=== PATIENT | female | born 1945 | race Caucasian/White ===

== ENCOUNTER → 2016-07-08 | Outpatient (CLI) | payer MEDICARE ==
--- NOTE | 2016-07-08 14:02 | XR ---
EXAMINATION TYPE: XR chest 2V DATE OF EXAM: 07/08/2016 1:31 PM COMPARISON: Chest x-ray September 18, 2009. HISTORY: R07.81 Pleurodynia per order. Left-sided chest and rib pain since carrying injury per patie nt. TECHNIQUE: Frontal and lateral views of the chest are obtained. FINDINGS: There is chronic senescent change without suspicious focal air space opacity, pleural effus ion, or pneumothorax seen bilaterally. The cardiac silhouette size is within normal limits with athe rosclerotic change in aortic knob. The osseous structures are somewhat demineralized. Scoliotic cur vature is redemonstrated. Cholecystectomy clips are redemonstrated. No acute displaced left-sided rib fractures are evident. IMPRESSION: Chronic changes without acute pulmonary process. No significant change from prior.
== END | disposition home or self-care (01) ==
LOC: RADXRMAIN 13:17
PROVIDERS: ATTEND Family Medicine
DX: R07.81 Pleurodynia (principal)
CPT/HCPCS: 71020

== ENCOUNTER → 2017-03-03 | Outpatient (CLI) | payer MEDICARE ==
--- NOTE | 2017-03-03 13:08 | BD ---
EXAMINATION TYPE: MG DEXA axial skeleton. DATE OF EXAM: 03/03/2017 COMPARISON: NONE CLINICAL HISTORY: osteopenia Height: 5'3 Weight: 152 FRAX RISK QUESTIONS: Alcohol (3 or more units per day): no Family History (Parent hip fracture): no Glucocorticoids (More than 3mos): yes (Ex: prednisone, prednisolone, methylprednisolone, dexamethasone, and hydrocortisone). History of Fracture in Adulthood: no Secondary Osteoporosis: 1. Type 1 Diabetes: no 2. Hyperthyroidism: no 3. Menopause before 45: no 4. Malnutrition: no 5. Chronic liver disease: no Rheumatoid Arthritis: no Current Tobacco Use: no RISK FACTORS HISTORY OF: Diet low in dairy products/other sources of calcium: Postmenopausal woman: MEDICATIONS: Prednisone or other steroids: How Lon-5 years off and on Additional Medications: Additional History: EXAM MEASUREMENTS: Bone mineral densitometry was performed using the Capigami System. Bone mineral density as measured about the Lumbar spine is: ----- L1-L4(G/cm2): 1.040 T Score Values are as follows: ----- L2: -1.9 ----- L3: -1.7 ----- L4: 0.6 ----- L1-L4: -1.2 Bone mineral density about the R hip (g/cm2): 0.789 Bone mineral density about the L hip (g/cm2): 0.796 T Score values are as follows: -----R Neck: -1.8 -----L Neck: -1.7 -----R Total: -1.0 -----L Total: -1.1 IMPRESSION: Osteopenia (T Score between -2.5 and -1 ) as noted by T score values: L2-L3 and Arie Hips There is slightly increased risk of fracture and the patient may be considered for treatment. Re-Screen 2-5 years. NOTE: T-SCORE=SD OF THE YOUNG ADULT MEAN.
--- NOTE | 2017-03-05 07:59 | MM ---
Reason for exam: screening (asymptomatic). Last mammogram was performed 2 years and 2 months ago. History: Patient is postmenopausal and is nulliparous. Family history of breast cancer in maternal cousin and breast cancer in maternal aunt. Benign lumpectomy of the right breast, 1960. Physical Findings: A clinical breast exam by your physician is recommended on an annual basis and results should be correlated with mammographic findings. MG 3D Screening Mammo W/Cad Bilateral CC and MLO view(s) were taken. Prior study comparison: December 18, 2014, mammogram, performed at [facility]. November 28, 2013, mammogram, performed at [facility]. There is chronic nodularity bilaterally. No significant changes when compared with prior studies. ASSESSMENT: Benign, BI-RAD 2 RECOMMENDATION: Routine screening mammogram of both breasts in 1 year.
== END | disposition home or self-care (01) ==
LOC: RADMAMWWP 11:54
PROVIDERS: ATTEND Obstetrics & Gynecology
DX: Z12.31 Encounter for screening mammogram for malignant neoplasm of breast (principal); M85.88 Other specified disorders of bone density and structure, other site
CPT/HCPCS: 77080; 77063; G0202

== ENCOUNTER 2017-12-01 09:17 | Day surgery (SDC) | payer MEDICARE ==
[2017-11-26 13:01] VITALS: BMI 25.8
[~2017-12-01 09:17] MED LIST: LACTATED RINGERS 1,000 ML IV SCH
[2017-12-01] MEDS ORDERED: LIDOCAINE 1% 20 ML VIAL (10MG/ML) FOR IV START INTRADERMA ONE (09:49)
[2017-12-01 09:51] VITALS: RESP 16; TEMP 98
[2017-12-01] MEDS ORDERED: LIDOCAINE 1% INJ 10MG/ML (20 ML MDV) ONE (10:06)
[2017-12-01] MEDS ORDERED: PROPOFOL 10 MG/ML 20 ML VIAL IV ONE (10:06)
--- NOTE | 2017-12-01 10:08 | P.GSHP ---
History of Present Illness H&P Date: 12/01/17 CHIEF COMPLAINT: GERD HISTORY OF PRESENT ILLNESS: The patient is a 72-year-old female who presents reports gastroesophageal reflux disease. Upper endoscopy was offered for further evaluation and management. PAST MEDICAL HISTORY: Please see list. PAST SURGICAL HISTORY: Please see list. MEDICATIONS: Please see list. ALLERGIES: Please see list. SOCIAL HISTORY: No illicit drug use FAMILY HISTORY: No reports of Crohn disease or ulcerative colitis. REVIEW OF ORGAN SYSTEMS: CONSTITUTIONAL: No reports of fevers or chills. GI: Denies any blood in stools or constipation. PHYSICAL EXAM: VITAL SIGNS: Stable GENERAL: Well-developed and pleasant in no acute distress. HEENT: No scleral icterus. Extraocular movements grossly intact. Moist buccal mucosa. NECK: Supple without lymphadenopathy. CHEST: Unlabored respirations. Equal bilateral excursions. CARDIOVASCULAR: Regular rate and rhythm. Distal 2+ pulses. ABDOMEN: Soft, nondistended. MUSCULOSKELETAL: No clubbing, cyanosis, or edema. ASSESSMENT: 1. Gastroesophageal reflux disease PLAN: 1. Recommend proceeding with an upper endoscopy Past Medical History Past Medical History: Asthma, Fibromyalgia Additional Past Medical History / Comment(s): RECENT ABD. PAIN History of Any Multi-Drug Resistant Organisms: None Reported Past Surgical History: Cholecystectomy Additional Past Surgical History / Comment(s): COLONOSCOPY. BILAT CATARACTS REPAIRED. REPAIR DETACHED RT RETINA Past Anesthesia/Blood Transfusion Reactions: Motion Sickness Smoking Status: Never smoker - Past Family History Mother Family Medical History: No Reported History Medications and Allergies Home Medications Medication Instructions Recorded Confirmed Type Albuterol Inhaler [Ventolin Hfa 1 - 2 puff INHALATION Q4-6H PRN 11/26/17 History Inhaler] Albuterol Nebulized [Ventolin 2.5 mg INHALATION DAILY PRN 11/26/17 11/26/17 History Nebulized] Zolpidem [Ambien] 10 mg PO HS 11/26/17 11/26/17 History Allergies Allergy/AdvReac Type Severity Reaction Status Date / Time Milk Containing Products Allergy Wheezing Verified 11/26/17 12:54 [Dairy] Surgical - Exam Vital Signs Temp Pulse Resp BP Pulse Ox 98.0 F 83 16 180/88 97 12/01/17 09:49 12/01/17 09:49 12/01/17 09:49 12/01/17 09:49 12/01/17 09:49
--- NOTE | 2017-12-01 10:21 | P.PCN ---
Date of Procedure: 12/01/17 Description of Procedure: PREOPERATIVE DIAGNOSIS: Gastroesophageal reflux disease. POSTOPERATIVE DIAGNOSIS: Gastritis with recent bleed, superficial Superficial gastric ulcer, cardia Gastroesophageal reflux disease. Diaphragmatic hiatal hernia without obstruction. OPERATION: Esophagogastroduodenoscopy with biopsies along antrum. SURGEON: Ramila Huddleston MD ANESTHESIA: MAC. INDICATIONS: The patient is a 72-year-old female who presents with a history of reflux disease. Benefits and risks of the procedure were described. Informed consent was obtained. DESCRIPTION: The patient was brought into the endoscopy suite and laid in the left lateral decubitus position. An Olympus gastroscope was passed along the posterior oropharynx down to the distal esophagus where the squamocolumnar junction was encountered at 37 cm from the incisors. The stomach was entered and no bile reflux was found. Additional findings are listed below. Biopsies with cold forceps were obtained of the antrum. The first through third portion of the duodenum was examined and unremarkable. Retroflexion of the scope confirmed Hill grade 4 lower esophageal valve. The squamocolumnar junction demonstrated LA grade B erosive esophagitis. The stomach was desufflated. The patient tolerated the procedure well. FINDINGS: Squamocolumnar junction 37 cm from the incisors. Diaphragmatic hiatus at 40 cm. Hiatal hernia 3 cm. Hill grade 4 lower esophageal valve. LA grade B erosive esophagitis. No active duodenitis. Diffuse gastritis with recent bleed. Gastric ulcer, cardia. RECOMMENDATIONS: Upper endoscopy as needed. Plan - Discharge Summary New Discharge Prescriptions: No Action Zolpidem [Ambien] 10 mg PO HS Albuterol Nebulized [Ventolin Nebulized] 2.5 mg INHALATION DAILY PRN PRN Reason: Shortness Of Breath Albuterol Inhaler [Ventolin Hfa Inhaler] 1 - 2 puff INHALATION Q4-6H PRN PRN Reason: Shortness Of Breath Discharge Medication List Albuterol Inhaler [Ventolin Hfa Inhaler] 1 - 2 puff INHALATION Q4-6H PRN [History] Albuterol Nebulized [Ventolin Nebulized] 2.5 mg INHALATION DAILY PRN 11/26/17 [ History] Zolpidem [Ambien] 10 mg PO HS 11/26/17 [History]
[2017-12-01 10:43] VITALS: BP 179/78; PULSE 72
== END 2017-12-01 11:24 | disposition home or self-care (01) ==
LOC: ORWHC2ENDO 09:17
PROVIDERS: ATTEND Surgery Plastic and Reconstructive Surgery
DX: K29.31 Chronic superficial gastritis with bleeding (principal); K21.9 Gastro-esophageal reflux disease without esophagitis; J45.909 Unspecified asthma, uncomplicated; K25.9 Gastric ulcer, unspecified as acute or chronic, without hemorrhage or perforation; K44.9 Diaphragmatic hernia without obstruction or gangrene; M79.7 Fibromyalgia; Z91.011 Allergy to milk products; Z87.11 Personal history of peptic ulcer disease; Z79.899 Other long term (current) drug therapy
CPT/HCPCS: 88305; 43239; J2001; J2704

== ENCOUNTER → 2018-09-07 | Outpatient (CLI) | payer MEDICARE ==
--- NOTE | 2018-09-07 15:53 | XR ---
EXAMINATION TYPE: XR chest 2V DATE OF EXAM: 09/07/2018 COMPARISON: 07/08/2016 HISTORY: G 44.9. COPD. TECHNIQUE: Frontal and lateral views of the chest are obtained. FINDINGS: There is no focal air space opacity, pleural effusion, or pneumothorax seen. No flattening of the diaphragms are seen on the lateral view. The cardiac silhouette size is within normal limits. Prominent epicardial fat pad is noted similar to the prior 2017 at the heart borders. The osseous s tructures are intact. Cholecystectomy clips are evident. IMPRESSION: No acute cardiopulmonary process.
== END | disposition home or self-care (01) ==
LOC: RADXRMAIN 12:23
PROVIDERS: ATTEND Family Medicine
DX: J44.9 Chronic obstructive pulmonary disease, unspecified (principal)
CPT/HCPCS: 71046

== ENCOUNTER → 2019-04-06 | Outpatient (CLI) | payer MEDICARE ==
--- NOTE | 2019-04-07 07:32 | BD ---
EXAMINATION TYPE: Axial Bone Density DATE OF EXAM: 04/06/2019 COMPARISON: 03.03.2017 CLINICAL HISTORY: 74 YR OLD FEMALE...ICD-10 CODE: M89.9 DISORDER OF BONE Height: 62.2 Weight: 146 FRAX RISK QUESTIONS: Glucocorticoids (More than 3mos): YES (Ex: prednisone, prednisolone, methylprednisolone, dexamethasone, and hydrocortisone). RISK FACTORS HISTORY OF: Active: YES Diet low in dairy products/other sources of calcium: YES, ALLERGIC Postmenopausal woman: YES AT AGE 50 Hyperparathyroidism: NO Adrenal Insufficiency: NO MEDICATIONS: Prednisone or other steroids: YES, ASTHMA INHALER ALBUTEROL, STEROIDS Additional Medications: REFLUX MEDS, VIT D Additional History: ASTHMA, REFLUX EXAM MEASUREMENTS: Bone mineral densitometry was performed using the [employer]erve System. Bone mineral density as measured about the Lumbar spine is: ----- L1-L4(G/cm2): 1.042 T Score Values are as follows: ----- L1: -2.1 ----- L2: -1.9 ----- L3: -1.2 ----- L4: 0.2 ----- L1-L4: -1.2 Bone mineral density has: Decreased -0.1% since study of: 03.03.2017 Bone mineral density about the R hip (g/cm2): 0.872 Bone mineral density about the L hip (g/cm2): 0.858 T Score values are as follows: -----R Neck: -1.6 -----L Neck: -1.7 -----R Total: -1.1 -----L Total: -1.2 Bone mineral density has: Decreased -1.4% since study of: 03.03.2017 FRAX%s: THERE IS A 18.5% CHANCE FOR A MAJOR OSTEOPOROTIC FX AND A 4.6% FOR HIP.....PROBABILITY FOR FX IN 10 YRS TIME IMPRESSION: Osteopenia. NOTE: T-SCORE=SD OF THE YOUNG ADULT MEAN.
--- NOTE | 2019-04-10 10:42 | MM ---
Reason for exam: screening (asymptomatic). Last mammogram was performed 2 years and 1 month ago. History: Patient is postmenopausal and is nulliparous. Family history of breast cancer in maternal cousin and breast cancer in maternal aunt. Benign lumpectomy of the right breast, 1960. Physical Findings: A clinical breast exam by your physician is recommended on an annual basis and results should be correlated with mammographic findings. MG 3D Screening Mammo W/Cad Bilateral CC and MLO view(s) were taken. Prior study comparison: March 03, 2017, bilateral MG 3d screening mammo w/cad. December 18, 2014, mammogram, performed at [facility]. The breast tissue is heterogeneously dense. This may lower the sensitivity of mammography. No suspicious abnormality. No significant changes when compared with prior studies. ASSESSMENT: Benign, BI-RAD 2 RECOMMENDATION: Routine screening mammogram of both breasts in 1 year.
== END | disposition home or self-care (01) ==
LOC: RADMAMWWP 14:31
PROVIDERS: ATTEND Obstetrics & Gynecology
DX: Z12.31 Encounter for screening mammogram for malignant neoplasm of breast (principal); M85.89 Other specified disorders of bone density and structure, multiple sites
CPT/HCPCS: 77063; 77067; 77080

== ENCOUNTER → 2020-05-15 | Outpatient (CLI) | payer MEDICARE | END | disposition home or self-care (01) | LOC: LABWHC1 13:06 | PROVIDERS: ATTEND Nurse Practitioner | DX: Z20.828 Contact with and (suspected) exposure to other viral communicable diseases (principal) | CPT/HCPCS: U0003; C9803 ==

== ENCOUNTER 2020-10-23 09:32 | Day surgery (SDC) | payer MEDICARE ==
[2020-10-10 11:48] VITALS: BMI 25.4
--- NOTE | 2020-10-23 09:32 | P.GSHP ---
History of Present Illness H&P Date: 10/23/20 CHIEF COMPLAINT: Colon screen HISTORY OF PRESENT ILLNESS: The patient is a 75-year-old female who presents for colon screen. Lower endoscopy was offered for further evaluation and management. PAST MEDICAL HISTORY: Please see list. PAST SURGICAL HISTORY: Please see list. MEDICATIONS: Please see list. ALLERGIES: Please see list. SOCIAL HISTORY: No illicit drug use FAMILY HISTORY: No reports of Crohn disease or ulcerative colitis. REVIEW OF ORGAN SYSTEMS: CONSTITUTIONAL: No reports of fevers or chills. PHYSICAL EXAM: VITAL SIGNS: Stable GENERAL: Well-developed pleasant in no acute distress. HEENT: No scleral icterus. Extraocular movements grossly intact. Moist buccal mucosa. NECK: Supple without lymphadenopathy. CHEST: Unlabored respirations. Equal bilateral excursions. CARDIOVASCULAR: Regular rate and rhythm. Distal 2+ pulses. ABDOMEN: Soft, nontender, nondistended. MUSCULOSKELETAL: No clubbing, cyanosis, or edema. ASSESSMENT: 1. Colon screen. PLAN: 1. Recommend proceeding with a lower endoscopy Past Medical History Past Medical History: Asthma, Fibromyalgia Additional Past Medical History / Comment(s): Intermittent abdominal pain, hx colon polyp. History of Any Multi-Drug Resistant Organisms: None Reported Past Surgical History: Cholecystectomy Additional Past Surgical History / Comment(s): COLONOSCOPY, BILATERAL CATARACTS, REPAIR OF DETACHED RIGHT RETINA. Past Anesthesia/Blood Transfusion Reactions: Motion Sickness Past Psychological History: No Psychological Hx Reported Smoking Status: Never smoker Past Alcohol Use History: Rare Past Drug Use History: None Reported - Past Family History Mother Family Medical History: No Reported History Medications and Allergies Home Medications Medication Instructions Recorded Confirmed Type Albuterol Inhaler (Mhu) [Ventolin 1 - 2 puff INHALATION Q4-6H PRN 11/26/17 10/21/20 History Hfa Inhaler] Zolpidem [Ambien] 10 mg PO HS 11/26/17 10/21/20 History Ascorbic Acid [Vitamin C] 500 mg PO DAILY 10/10/20 10/21/20 History Cholecalciferol [Vitamin D3 (25 50 mcg PO DAILY 10/10/20 10/21/20 History Mcg = 1000 Iu)] Montelukast [Singulair] 10 mg PO HS 10/10/20 10/21/20 History Allergies Allergy/AdvReac Type Severity Reaction Status Date / Time Milk Containing Products Allergy Wheezing Verified 10/21/20 14:04 [Dairy]
[2020-10-23] MEDS ORDERED: LACTATED RINGERS 1,000 ML IV ONE (10:10)
[2020-10-23 10:16] VITALS: TEMP 98
[2020-10-23] MEDS ORDERED: PROPOFOL 10 MG/ML 20 ML VIAL IV ONE (11:29)
[2020-10-23] MEDS ORDERED: LIDOCAINE 1% INJ 10MG/ML (20 ML MDV) ONE (11:29)
--- NOTE | 2020-10-23 12:01 | P.PCN ---
Date of Procedure: 10/23/20 Description of Procedure: PREOPERATIVE DIAGNOSIS: Personal history of colon polyps Colonoscopy screening POSTOPERATIVE DIAGNOSIS: Tubular adenoma cecum Tubular adenoma sigmoid colon Sigmoid diverticulosis, severe OPERATION: Colonoscopy to the ileocecal valve and appendiceal orifice, cecum Colonoscopy with hot snare polypectomy SURGEON: Ramila Huddleston MD. ANESTHESIA: MAC. INDICATIONS: The patient is an 75-year-old male who presents personal history of colon polyps. Last colonoscopy 3 years. Benefits and risks were described and informed consent was obtained. DESCRIPTION OF PROCEDURE: The patient had undergone Sutab prep. The patient had been brought into the operating room and laid in the left lateral decubitus position. After adequate intravenous sedation, the rectum was examined with 2% lidocaine jelly. No external hemorrhoids were encountered. The rectal tone was within normal limits. No lesions were palpated in the rectal vault. An Olympus colonoscope was advanced until the cecum, ileocecal valve and appendiceal orifice were clearly viewed. The prep was good. Severe sigmoid diverticulosis was encountered. Colonic polyps were found and removed. No evidence of focal colitis was found. Retroflexion of the scope demonstrated grade 1 internal hemorrhoids without active bleeding or inflammation. The colon was desufflated. The patient had tolerated the procedure well. Withdrawal time was over 6 minutes. FINDINGS: Aronchick preparation quality scale 2 (1-5) Internal hemorrhoids, grade 1 No external hemorrhoids No arteriovenous malformations. Sigmoid diverticulosis, severe Removal of 4 polyps: - Snare polypectomy 25 cm from the anal verge, 8 mm tubulovillous adenoma polyp, descending/sigmoid colon - Snare polypectomy cecum 3, 4 to 9 mm flat villous adenoma polyp No focal colitis. RECOMMENDATIONS: Given severity of tubular adenomas, recommend repeat colonoscopy 1 year, 2021 Plan - Discharge Summary Discharge Rx Participant: No New Discharge Prescriptions: Continue Zolpidem [Ambien] 10 mg PO HS Albuterol Inhaler (Mhu) [Ventolin Hfa Inhaler (Mhu)] 1 - 2 puff INHALATION Q4-6H PRN PRN Reason: Shortness Of Breath Montelukast [Singulair] 10 mg PO HS Cholecalciferol [Vitamin D3 (25 Mcg = 1000 Iu)] 50 mcg PO DAILY Ascorbic Acid [Vitamin C] 500 mg PO DAILY Discharge Medication List Albuterol Inhaler (Mhu) [Ventolin Hfa Inhaler (Mhu)] 1 - 2 puff INHALATION Q4-6H PRN 11/26/17 [History] Zolpidem [Ambien] 10 mg PO HS 11/26/17 [History] Ascorbic Acid [Vitamin C] 500 mg PO DAILY 10/10/20 [History] Cholecalciferol [Vitamin D3 (25 Mcg = 1000 Iu)] 50 mcg PO DAILY 10/10/20 [History] Montelukast [Singulair] 10 mg PO HS 10/10/20 [History] Follow up Appointment(s)/Referral(s): Ramila Huddleston MD [STAFF PHYSICIAN] - 11/05/20 Patient Instructions/Handouts: Diverticulosis (DC), Colorectal Polyps (DC), Diverticulosis Diet (GEN) Activity/Diet/Wound Care/Special Instructions: Repeat colonoscopy in one year, 2021 Discharge Disposition: HOME SELF-CARE
[2020-10-23 12:03] VITALS: RESP 18
[2020-10-23 12:21] VITALS: BP 139/89; PULSE 68
== END 2020-10-23 12:45 | disposition home or self-care (01) ==
LOC: ORWHC2ENDO 09:32
PROVIDERS: ATTEND Surgery Plastic and Reconstructive Surgery
DX: Z12.11 Encounter for screening for malignant neoplasm of colon (principal); D12.0 Benign neoplasm of cecum; D12.5 Benign neoplasm of sigmoid colon; K57.90 Diverticulosis of intestine, part unspecified, without perforation or abscess without bleeding; Z86.010 Personal history of colon polyps; J45.909 Unspecified asthma, uncomplicated; M79.7 Fibromyalgia; Z79.899 Other long term (current) drug therapy; Z91.011 Allergy to milk products
CPT/HCPCS: 88305; 45385; J2001; J2704

== ENCOUNTER → 2020-11-25 | Outpatient (CLI) | payer MEDICARE ==
--- NOTE | 2020-11-27 08:33 | MM ---
Reason for exam: screening (asymptomatic). Last mammogram was performed 1 year and 8 months ago. History: Patient is postmenopausal and is nulliparous. Family history of breast cancer in maternal cousin and breast cancer in maternal aunt. Benign lumpectomy of the right breast, 1960. Physical Findings: A clinical breast exam by your physician is recommended on an annual basis and results should be correlated with mammographic findings. MG 3D Screening Mammo W/Cad Bilateral CC and MLO view(s) were taken. Prior study comparison: April 06, 2019, bilateral MG 3d screening mammo w/cad. March 03, 2017, bilateral MG 3d screening mammo w/cad. The breast tissue is heterogeneously dense. This may lower the sensitivity of mammography. No significant changes when compared with prior studies. ASSESSMENT: Benign, BI-RAD 2 RECOMMENDATION: Routine screening mammogram of both breasts in 1 year.
== END | disposition home or self-care (01) ==
LOC: RADMAMWWP 13:35
PROVIDERS: ATTEND Obstetrics & Gynecology
DX: Z12.31 Encounter for screening mammogram for malignant neoplasm of breast (principal)
CPT/HCPCS: 77063; 77067

== ENCOUNTER 2021-11-19 08:01 | Day surgery (SDC) | payer MEDICARE ==
[2021-11-14 10:40] VITALS: BMI 24.6
--- NOTE | 2021-11-19 05:58 | P.GSHP ---
History of Present Illness H&P Date: 11/19/21 CHIEF COMPLAINT: Colon screen HISTORY OF PRESENT ILLNESS: The patient is a 76-year-old female who presents for colon screen. Lower endoscopy was offered for further evaluation and management. PAST MEDICAL HISTORY: Please see list. PAST SURGICAL HISTORY: Please see list. MEDICATIONS: Please see list. ALLERGIES: Please see list. SOCIAL HISTORY: No illicit drug use FAMILY HISTORY: No reports of Crohn disease or ulcerative colitis. REVIEW OF ORGAN SYSTEMS: CONSTITUTIONAL: No reports of fevers or chills. PHYSICAL EXAM: VITAL SIGNS: Stable GENERAL: Well-developed pleasant in no acute distress. HEENT: No scleral icterus. Extraocular movements grossly intact. Moist buccal mucosa. NECK: Supple without lymphadenopathy. CHEST: Unlabored respirations. Equal bilateral excursions. CARDIOVASCULAR: Regular rate and rhythm. Distal 2+ pulses. ABDOMEN: Soft, nontender, nondistended. MUSCULOSKELETAL: No clubbing, cyanosis, or edema. ASSESSMENT: 1. Colon screen. PLAN: 1. Recommend proceeding with a lower endoscopy Past Medical History Past Medical History: Asthma, Fibromyalgia Additional Past Medical History / Comment(s): Intermittent abdominal pain, hx colon polyp. History of Any Multi-Drug Resistant Organisms: None Reported Past Surgical History: Cholecystectomy Additional Past Surgical History / Comment(s): COLONOSCOPY, BILATERAL CATARACTS, REPAIR OF DETACHED RIGHT RETINA. Past Anesthesia/Blood Transfusion Reactions: Motion Sickness Smoking Status: Never smoker - Past Family History Mother Family Medical History: No Reported History Medications and Allergies Home Medications Medication Instructions Recorded Confirmed Type Albuterol Inhaler [Ventolin Hfa 1 - 2 puff INHALATION Q4-6H PRN 11/26/17 11/14/21 History Inhaler] Zolpidem [Ambien] 10 mg PO HS 11/26/17 11/14/21 History Ascorbic Acid [Vitamin C] 500 mg PO DAILY 10/10/20 11/14/21 History Cholecalciferol [Vitamin D3 (25 50 mcg PO DAILY 10/10/20 11/14/21 History Mcg = 1000 Iu)] Montelukast [Singulair] 10 mg PO HS 10/10/20 11/14/21 History Allergies Allergy/AdvReac Type Severity Reaction Status Date / Time Milk Containing Products Allergy Wheezing Verified 11/14/21 10:34 [Dairy]
[2021-11-19 08:22] VITALS: TEMP 97.8
[2021-11-19] MEDS ORDERED: PROPOFOL 10 MG/ML 20 ML VIAL IV ONE (08:30)
--- NOTE | 2021-11-19 09:12 | P.PCN ---
Date of Procedure: 11/19/21 Description of Procedure: PREOPERATIVE DIAGNOSIS: Personal history of colon polyps POSTOPERATIVE DIAGNOSIS: Tubular adenoma ascending colon Aguayo-diverticulosis Sigmoid diverticulosis, severe with stricture OPERATION: Colonoscopy to the ileocecal valve and appendiceal orifice, cecum Colonoscopy with cold forceps biopsy SURGEON: Ramila Huddleston MD. ANESTHESIA: MAC. INDICATIONS: The patient is an 76-year-old female who presents personal history of colon polyps. Last colonoscopy less than 5 years. Benefits and risks were described and informed consent was obtained. DESCRIPTION OF PROCEDURE: The patient had undergone Sutab prep. The patient had been brought into the operating room and laid in the left lateral decubitus position. After adequate intravenous sedation, the rectum was examined with 2% lidocaine jelly. No external hemorrhoids were encountered. The rectal tone was within normal limits. No lesions were palpated in the rectal vault. An Olympus colonoscope was advanced initially to the sigmoid colon however exchanged for a pediatric colonoscope due to stricture at the sigmoid. The scope was advanced until the cecum, ileocecal valve and appendiceal orifice were clearly viewed. The prep was fair. Sigmoid diverticulosis with pandiverticulosis was encountered. Colonic polyps were found and removed. No evidence of focal colitis was found. Retroflexion of the scope demonstrated grade 1 internal hemorrhoids without active bleeding or inflammation. The colon was desufflated. The patient had tolerated the procedure well. Withdrawal time was over 6 minutes. FINDINGS: Aronchick preparation quality scale 3 (1-5) Internal hemorrhoids, grade 1 No external hemorrhoids No arteriovenous malformations. Sigmoid diverticulosis, moderate to severe Removal of 1 polyps: - Cold forceps biopsy at ascending colon, 5 mm polyp. No focal colitis. RECOMMENDATIONS: Follow-up colonoscopy 3 years, 2024 Recommend two day colon prep Plan - Discharge Summary Discharge Rx Participant: No New Discharge Prescriptions: Continue Zolpidem [Ambien] 10 mg PO HS Albuterol Inhaler [Ventolin Hfa Inhaler] 1 - 2 puff INHALATION Q4-6H PRN PRN Reason: Shortness Of Breath Montelukast [Singulair] 10 mg PO HS Cholecalciferol [Vitamin D3 (25 Mcg = 1000 Iu)] 50 mcg PO DAILY Ascorbic Acid [Vitamin C] 500 mg PO DAILY Discharge Medication List Albuterol Inhaler [Ventolin Hfa Inhaler] 1 - 2 puff INHALATION Q4-6H PRN 11/26/17 [History] Zolpidem [Ambien] 10 mg PO HS 11/26/17 [History] Ascorbic Acid [Vitamin C] 500 mg PO DAILY 10/10/20 [History] Cholecalciferol [Vitamin D3 (25 Mcg = 1000 Iu)] 50 mcg PO DAILY 10/10/20 [History] Montelukast [Singulair] 10 mg PO HS 10/10/20 [History] Follow up Appointment(s)/Referral(s): Ramila Huddleston MD [STAFF PHYSICIAN] - As Needed Patient Instructions/Handouts: Colorectal Polyps (GEN), Diverticulosis Diet (GEN), Diverticulosis (DC) Activity/Diet/Wound Care/Special Instructions: Colonoscopy in 3 years, 2024 Discharge Disposition: HOME SELF-CARE
[2021-11-19 09:20] VITALS: BP 163/77; PULSE 80; RESP 16
== END 2021-11-19 10:05 | disposition home or self-care (01) ==
LOC: ORWHC2ENDO 08:01
PROVIDERS: ATTEND Surgery Plastic and Reconstructive Surgery
DX: Z12.11 Encounter for screening for malignant neoplasm of colon (principal); K63.5 Polyp of colon; K57.30 Diverticulosis of large intestine without perforation or abscess without bleeding; Z86.010 Personal history of colon polyps; K64.0 First degree hemorrhoids; K56.699 Other intestinal obstruction unspecified as to partial versus complete obstruction; J45.909 Unspecified asthma, uncomplicated; M79.7 Fibromyalgia; Z90.49 Acquired absence of other specified parts of digestive tract; Z98.42 Cataract extraction status, left eye; Z98.41 Cataract extraction status, right eye; Z98.890 Other specified postprocedural states; Z79.899 Other long term (current) drug therapy; Z91.011 Allergy to milk products
CPT/HCPCS: 88305; 45380; J2704; 45385

== ENCOUNTER → 2021-12-04 | Outpatient (CLI) | payer MEDICARE ==
--- NOTE | 2021-12-05 08:55 | MM ---
Reason for Exam: Screening (asymptomatic). Last screening mammogram was performed 12 month(s) ago. Patient History: Menarche at age 13. Patient has no children. Postmenopausal. 1960, Benign Lumpectomy on the right side. Maternal cousin had breast cancer. Maternal aunt had breast cancer. Maternal cousin had breast cancer at or over age 50. Risk Values: Radha 5 year model risk: 2.0%. NCI Lifetime model risk: 4.0%. Prior Study Comparison: 12/18/2014 Screening Mammogram, [facility]. 03/03/2017 Bilateral Screening Mammogram, [facility]. 04/06/2019 Bilateral Screening Mammogram, [facility]. 11/25/2020 Bilateral Screening Mammogram, [facility]. Tissue Density: The breast tissue is heterogeneously dense. This may lower the sensitivity of mammography. Findings: Analyzed By CAD. There is no suspicious group of microcalcifications or new suspicious mass in either breast. Scattered bilateral benign-appearing calcifications. No significant change from prior examination. Overall Assessment: Benign, BI-RAD 2 Management: Screening Mammogram of both breasts in 1 year. A clinical breast exam by your physician is recommended on an annual basis and results should be correlated with mammographic findings. Electronically signed and approved by: Douglas Langston D.O.
--- NOTE | 2021-12-05 13:21 | BD ---
EXAMINATION TYPE: Axial Bone Density DATE OF EXAM: 12/04/2021 COMPARISON: NONE CLINICAL HISTORY: 76 years year old Female. ICD-10 CODE: M85.88 OSTEOPENIA Height: 62.5 Weight: 139 FRAX RISK QUESTIONS: Alcohol (3 or more units per day): NO Family History (Parent hip fracture): NO Glucocorticoids (More than 3mos): NO History of Fracture in Adulthood: NO Secondary Osteoporosis: 1. Type 1 Diabetes: NO 2. Hyperthyroidism: NO 3. Menopause before 45: NO 4. Malnutrition: NO 5. Chronic liver disease: NO Rheumatoid Arthritis: NO Current Tobacco Use: NO RISK FACTORS HISTORY OF: Hip Fracture (Right/Left): NO Spine Fracture: NO History of Wrist Fracture: NO Surgery to Spine/Hip(right/left)/Wrist (right/left): NO Family History of Osteoporosis: NO Active: YES Diet low in dairy products/other sources of calcium: YES Postmenopausal woman: YES Take estrogen and/or progesterone medications: NO Lost more than 2 inches in height since high school: NO Frequent falls: NO Poor Health: NO Hyperparathyroidism: NO Adrenal Insufficiency: NO MEDICATIONS: Prednisone or other steroids: NO Thyroid Medications: NO Osteoporosis Medications: NO Additional Medications: ALBUTEROL INHALER, VIT D, REFLUX MEDS, MULTI VIT., EXAM MEASUREMENTS: Bone mineral densitometry was performed using the [employer] System. Bone mineral density as measured about the Lumbar spine is: ----- L1-L4(G/cm2): 0.969 T Score Values are as follows: ----- L1: -2.5 ----- L2: -2.5 ----- L3: -1.9 ----- L4: -0.5 ----- L1-L4: -1.8 Bone mineral density has: DECREASED 7.4 % since study of: 03/03/2017 Bone mineral density about the R hip (g/cm2): 0.790 Bone mineral density about the L hip (g/cm2): 0.764 T Score values are as follows: -----R Neck: -1.8 -----L Neck: -2.0 -----R Total: -1.6 -----L Total: -1.5 Bone mineral density has: DECREASED 7.2 % since study of: 03/03/2017 FRAX%s: The graph provided illustrates a 14.4% chance for a major osteoporotic fx and a 3.9% chance f or the hips probability for fx in 10 years time. IMPRESSION: Osteopenia (T Score between -2.5 and -1). There is slightly increased risk of fracture and the patient may be considered for treatment. Re-Screen 2-5 years. NOTE: T-SCORE=SD OF THE YOUNG ADULT MEAN.
== END | disposition home or self-care (01) ==
LOC: RADBDWWP 12:32
PROVIDERS: ATTEND Obstetrics & Gynecology
DX: Z12.31 Encounter for screening mammogram for malignant neoplasm of breast (principal); M81.0 Age-related osteoporosis without current pathological fracture
CPT/HCPCS: 77063; 77067; 77080

== ENCOUNTER → 2022-12-08 | Outpatient (CLI) | payer MEDICARE ==
--- NOTE | 2022-12-09 20:43 | MM ---
Reason for Exam: Screening (asymptomatic). Last screening mammogram was performed 12 month(s) ago. Patient History: Menarche at age 13. Patient has no children. Postmenopausal. 1960, Benign Lumpectomy on the right side. Maternal cousin had breast cancer. Maternal aunt had breast cancer. Maternal cousin had breast cancer at or over age 50. Risk Values: Radha 5 year model risk: 1.9%. NCI Lifetime model risk: 3.7%. Prior Study Comparison: 04/06/2019 Bilateral Screening Mammogram, [facility]. 11/25/2020 Bilateral Screening Mammogram, [facility]. 12/04/2021 Bilateral MG 3D screening mammo w/cad, [facility]. Tissue Density: The breast tissue is heterogeneously dense. This may lower the sensitivity of mammography. Findings: Analyzed By CAD. A few areas of grouped coarse calcifications medially on both sides remain unchanged. There is no suspicious group of microcalcifications or new suspicious mass in either breast. Overall Assessment: Benign, BI-RAD 2 Management: Screening Mammogram of both breasts in 1 year. . Patient should continue monthly self-breast exams. A clinical breast exam by your physician is recommended on an annual basis. This exam should not preclude additional follow-up of suspicious palpable abnormalities. Note on Radha scores and lifetime risk: 1. A Radha score greater than 3% is considered moderate risk. If this is the case, consider specialist referral to assess eligibility for a risk reducing agent. 2. If overall lifetime risk for the development of breast cancer is 20% or higher, the patient may qualify for future screening with alternating mammogram and breast MRI. Electronically signed and approved by: Amando Daniel M.D. Radiologist
== END | disposition home or self-care (01) ==
LOC: RADMAMWWP 14:30
PROVIDERS: ATTEND Family Medicine
DX: Z12.31 Encounter for screening mammogram for malignant neoplasm of breast (principal); Z78.0 Asymptomatic menopausal state; Z80.3 Family history of malignant neoplasm of breast
CPT/HCPCS: 77063; 77067

== ENCOUNTER → 2022-12-28 | Outpatient (CLI) | payer MEDICARE ==
--- NOTE | 2022-12-28 13:48 | XR ---
EXAMINATION TYPE: XR chest 2V DATE OF EXAM: 12/28/2022 COMPARISON: NONE HISTORY: Asthma. TECHNIQUE: Frontal and lateral views of the chest are obtained. FINDINGS: There is no focal air space opacity, pleural effusion, or pneumothorax seen. The cardiac silhouette size is within normal limits. The osseous structures are intact. IMPRESSION: No acute cardiopulmonary process.
== END | disposition home or self-care (01) ==
LOC: RADXRMAIN 13:12
PROVIDERS: ATTEND Family Medicine
DX: J45.21 Mild intermittent asthma with (acute) exacerbation (principal)
CPT/HCPCS: 71046

== ENCOUNTER → 2023-12-10 | Outpatient (CLI) | payer MEDICARE ==
--- NOTE | 2023-12-13 08:21 | MM ---
Reason for Exam: Screening (asymptomatic). Last screening mammogram was performed 12 month(s) ago. Patient History: Menarche at age 13. Patient has no children. Postmenopausal. 1960, Benign Lumpectomy on the right side. Maternal cousin had breast cancer. Maternal aunt had breast cancer. Maternal cousin had breast cancer at or over age 50. Risk Values: Radha 5 year model risk: 1.9%. NCI Lifetime model risk: 3.4%. Prior Study Comparison: 11/25/2020 Bilateral Screening Mammogram, [facility]. 12/04/2021 Bilateral MG 3D screening mammo w/cad, [facility]. 12/08/2022 Bilateral MG 3D screening mammo w/cad, [facility]. Tissue Density: The breasts are heterogeneously dense, which may obscure small masses. Findings: Analyzed By CAD. There is no suspicious group of microcalcifications or new suspicious mass in either breast. Overall Assessment: Benign, BI-RAD 2 Management: Screening Mammogram of both breasts in 1 year. . Patient should continue monthly self-breast exams. A clinical breast exam by your physician is recommended on an annual basis. This exam should not preclude additional follow-up of suspicious palpable abnormalities. Note on Radha scores and lifetime risk: 1. A Radha score greater than 3% is considered moderate risk. If this is the case, consider specialist referral to assess eligibility for a risk reducing agent. 2. If overall lifetime risk for the development of breast cancer is 20% or higher, the patient may qualify for future screening with alternating mammogram and breast MRI. Electronically signed and approved by: Aristeo Yo M.D. Radiologis
== END | disposition home or self-care (01) ==
LOC: RADMAMWWP 13:00
PROVIDERS: ATTEND Family Medicine
DX: Z12.31 Encounter for screening mammogram for malignant neoplasm of breast (principal); R92.333 Mammographic heterogeneous density, bilateral breasts; Z78.0 Asymptomatic menopausal state; Z80.3 Family history of malignant neoplasm of breast
CPT/HCPCS: 77063; 77067

== ENCOUNTER → 2023-12-13 | Outpatient (CLI) | payer MEDICARE ==
--- NOTE | 2023-12-14 12:28 | BD ---
EXAMINATION TYPE: Axial Bone Density DATE OF EXAM: 12/13/2023 CLINICAL HISTORY: 78 years old Female. ICD-10 CODE: M81.0 AGE RELATED OSTEOPOROSIS Height: 62 Weight: 142.6 FRAX RISK QUESTIONS: Alcohol (3 or more units per day): no Family History (Parent hip fracture): no Glucocorticoids (More than 3mos): no (Ex: prednisone, prednisolone, methylprednisolone, dexamethasone, and hydrocortisone). History of Fracture in Adulthood: no Secondary Osteoporosis: 1. Type 1 Diabetes: no 2. Hyperthyroidism: no 3. Menopause before 45: no 4. Malnutrition: no 5. Chronic liver disease: no Rheumatoid Arthritis: no Current Tobacco Use: no RISK FACTORS HISTORY OF: Surgery to Spine/Hip(right/left)/Wrist (right/left): no EXAM MEASUREMENTS: Bone mineral densitometry was performed using the [employer] System. Bone mineral density as measured about the Lumbar spine is: ----- L1-L4(G/cm2): 0.834 T Score Values are as follows: ----- L1: -3.6 ----- L2: -3.7 ----- L3: -2.7 ----- L4: -2.0 ----- L1-L4: -2.9 Z Score Values are as follows: ----- L1: -1.7 ----- L2: -1.8 ----- L3: -0.8 ----- L4: -0.1 ----- L1-L4: -1.0 Bone mineral density has: decreased -13.9 % since study of: 12.04.2021 Bone mineral density about the R hip (g/cm2): 0.782 Bone mineral density about the L hip (g/cm2): 0.788 T Score values are as follows: -----R Neck: -2.1 -----L Neck: -2.1 -----R Total: -1.8 -----L Total: -1.7 Z Score values are as follows: -----R Neck: 0.0 -----L Neck: 0.0 -----R Total: 0.2 -----L Total: 0.2 Bone mineral density has: decreased -3.6 % since study of: 7.21.2021 FRAX%s: The graph provided illustrates a 16.3% chance for a major osteoporotic fx and a 5.0% chance f or the hips probability for fx in 10 years time. IMPRESSION: Osteoporosis (T Score less than -2.5). There is increased fracture risk and therapy is usually indicated based on age. Re-Screen 1-2 years. NOTE: T-SCORE=SD OF THE YOUNG ADULT MEAN.
== END | disposition home or self-care (01) ==
LOC: RADBDWWP 13:17
PROVIDERS: ATTEND Family Medicine
DX: M81.0 Age-related osteoporosis without current pathological fracture (principal); M85.89 Other specified disorders of bone density and structure, multiple sites
CPT/HCPCS: 77080

== ENCOUNTER → 2023-12-21 | Outpatient (CLI) | payer MEDICARE | LOC: CPPFTMAIN 08:08 | PROVIDERS: ATTEND Family Medicine | DX: J45.20 Mild intermittent asthma, uncomplicated | CPT/HCPCS: 94060; 94726; 94729 ==

== ENCOUNTER → 2024-04-05 | Outpatient (CLI) | payer MEDICARE | END | disposition home or self-care (01) | LOC: LABWHC1 13:30 | PROVIDERS: ATTEND Internal Medicine Critical Care Medicine | DX: J45.50 Severe persistent asthma, uncomplicated (principal) | CPT/HCPCS: 36415; 82785; 85008; 86003 ==

== ENCOUNTER → 2024-11-20 | Outpatient (CLI) | payer MEDICARE ==
--- NOTE | 2024-11-20 12:31 | XR ---
EXAMINATION TYPE: XR chest 2V DATE OF EXAM: 11/20/2024 12:02 PM COMPARISON: Chest radiographs from 12/28/2022. CLINICAL INDICATION: Female, 79 years old with history of J45.21 Mild intermittent asthma with acute EXACERB; [facility] TECHNIQUE: XR chest 2V Frontal and lateral views of the chest. FINDINGS: Lungs/Pleura: There is no evidence of pleural effusion, focal consolidation, or pneumothorax. Pulmonary vascularity: Unremarkable. Heart/mediastinum: Cardiomediastinal silhouette is unremarkable. Musculoskeletal: No acute osseous pathology. IMPRESSION: No acute cardiopulmonary disease/process. [facility], , 11/20/2024 12:28 PM
== END | disposition home or self-care (01) ==
LOC: RADXRMAIN 11:34
PROVIDERS: ATTEND Family Medicine
DX: J45.21 Mild intermittent asthma with (acute) exacerbation (principal)
CPT/HCPCS: 71046

== ENCOUNTER → 2024-12-11 | Outpatient (CLI) | payer MEDICARE ==
--- NOTE | 2024-12-11 18:12 | MM ---
Reason for Exam: Screening (asymptomatic). Last screening mammogram was performed 12 month(s) ago. Patient History: Menarche at age 13. Patient has no children. Postmenopausal. 1960, Benign Lumpectomy on the right side. Maternal cousin had breast cancer. Maternal aunt had breast cancer. Maternal cousin had breast cancer at or over age 50. Risk Values: Radha 5 year model risk: 1.9%. NCI Lifetime model risk: 3.1%. Prior Study Comparison: 12/04/2021 Bilateral MG 3D screening mammo w/cad, [facility]. 12/08/2022 Bilateral MG 3D screening mammo w/cad, [facility]. 12/10/2023 Bilateral MG 3D screening mammo w/cad, [facility]. Tissue Density: The breasts are heterogeneously dense, which may obscure small masses. Findings: Analyzed By CAD. Areas of coarse calcification redemonstrated on both sides. There is no suspicious group of microcalcifications or new suspicious mass in either breast. Overall Assessment: Benign, BI-RAD 2 Management: Screening Mammogram of both breasts in 1 year. Patient should continue monthly self-breast exams. A clinical breast exam by your physician is recommended on an annual basis. This exam should not preclude additional follow-up of suspicious palpable abnormalities. Note on Radha scores and lifetime risk: 1. A Radha score greater than 3% is considered moderate risk. If this is the case, consider specialist referral to assess eligibility for a risk reducing agent. 2. If overall lifetime risk for the development of breast cancer is 20% or higher, the patient may qualify for future screening with alternating mammogram and breast MRI. [facility], , 12/11/2024 6:09 PM. Electronically signed and approved by: Amando Daniel M.D. Radiologist
== END | disposition home or self-care (01) ==
LOC: RADMAMWWP 13:36
PROVIDERS: ATTEND Family Medicine
DX: Z12.31 Encounter for screening mammogram for malignant neoplasm of breast (principal); R92.333 Mammographic heterogeneous density, bilateral breasts; Z78.0 Asymptomatic menopausal state; Z80.3 Family history of malignant neoplasm of breast
CPT/HCPCS: 77063; 77067